=== PATIENT | male | born 1940 | race Caucasian/White ===

== ENCOUNTER 2018-12-21 23:29 | Emergency (ER) | payer MEDICARE, BC ==
[~2018-12-21] VITALS: Ht 193 cm; Wt 120.0 kg
[~2018-12-21 23:29] MED LIST: niCARDipine in NS 40mg/200ml (0.2mg/ml) IVPB IV ONE
[2018-12-21] MEDS ORDERED: niCARDipine-NS 40mg/200ml IVPB 200 ML IV SCH (23:45)
--- NOTE | 2018-12-21 23:45 | NUR ---
to bed 4 for level 1 stroke alert. pt is returning from CT. he is obtunded with labored breathing. Dr. Yepez notified and intubation prepared.
[2018-12-21 23:49] LABS: BASOPHILS # (AUTO) 0.1 X10'3 (0-0.2); BASOPHILS % (AUTO) 0.7 % (0-1); EOSINOPHILS # (AUTO) 0.2 X10'3 (0-0.9); EOSINOPHILS % (AUTO) 2.2 % (0-6); HEMATOCRIT 37.6 % (42.0-52.0); HEMOGLOBIN 12.8 g/dl (14.0-17.9); LYMPHOCYTES # (AUTO) 2.2 X10'3 (1.1-4.8); LYMPHOCYTES % (AUTO) 31.9 % (21-51); MEAN CORPUSCULAR HEMOGLOBIN 29.7 PG (27.0-31.0); MEAN CORPUSCULAR HGB CONC 34.1 g/dL (33.0-36.5); MEAN CORPUSCULAR VOLUME 87.3 FL (78-98); MEAN PLATELET VOLUME 7.8 FL (7.4-10.4); MONOCYTES # (AUTO) 0.5 X10'3 (0-0.9); MONOCYTES % (AUTO) 7.7 % (2-12); NEUTROPHILS % (AUTO) 57.5 % (42-75); PLATELET COUNT 201 X10'3 (140-440); RED BLOOD COUNT 4.31 X10'6 (4.70-6.10); RED CELL DISTRIBUTION WIDTH 15.5 % (11.5-14.5)
--- NOTE | 2018-12-21 23:50 | NUR ---
Patient's mental status is declining and ias concerning that he cannot maintqain his airway. Dr. Calderon at bedside and is preparing to intubate. Stroke nurse at bedside preparing cardene drip.
--- NOTE | 2018-12-21 23:58 | NUR ---
cardine up to 10mg/hr at Dr. Calderon order. BP 221/127
[2018-12-22 00:04] LABS: ALBUMIN 3.7 G/DL (3.4-5.0); ANION GAP 13 (8-16); BILIRUBIN,TOTAL 0.5 MG/DL (0.1-1.0); BLOOD UREA NITROGEN 20 MG/DL (7-18); BUN/CREATININE RATIO 15.7 (5.4-32.0); CALCIUM 8.6 MG/DL (8.5-10.1); CHLORIDE 108 MMOL/L (99-107); CREATININE 1.27 MG/DL (0.60-1.10); GLUCOSE 183 MG/DL (70-104); PHOSPHORUS 2.2 MG/DL (2.3-4.5); POTASSIUM 3.3 MMOL/L (3.5-5.1); SODIUM 142 MMOL/L (135-145); TOTAL CARBON DIOXIDE 21.5 MMOL/L (24-32); eGFR 55 ML/MIN
[2018-12-22 00:05] LABS: ALANINE AMINOTRANSFERASE 26 U/L (12-78); ALBUMIN/GLOBULIN RATIO 1.1 (1.1-1.5); ALKALINE PHOSPHATASE 86 IU/L (46-116); ASPARTATE AMINO TRANSFERASE 17 U/L (10-37); ETHANOL < 0.010 GM/DL (0.0-0.010)
--- NOTE | 2018-12-22 00:05 | NUR ---
Blood pressure remains well above target of 140 systolic. Cardene increased to 15mg/hr at Dr. Zhu's order.
[2018-12-22 00:13] LABS: PARTIAL THROMBOPLASTIN TIME 30 SECONDS (22-32)
[2018-12-22 00:15] LABS: ABG BASE EXCESS -2.7 mmol/L (-2.0-3.0); ABG HCO3 22.7 mmol/L (22.0-26.0); ABG OXYGEN SATURATION 98.9 % (95-98); ABG PCO2 (T) 40.4 mmHg (35.0-48.0); ABG PH (T) 7.364 (7.350-7.450); ABG PO2 (T) 192.8 mmHg (83-108); FCOHb 0.6 % (0.5-1.5); FMetHb 0.3 % (0.3-1.12); MINUTE VOLUME 8 L/min; PATIENT TEMPERATURE 36.3; PEEP 5 cm H2O; RESPIRATORY RATE 18 b/min; RESPIRATORY RATE (OBSERVED) 18 b/min; TIDAL VOLUME 450 mL
[2018-12-22] MEDS ORDERED: tranexamic acid 100mg/ml inj. IV ONE (00:15)
[2018-12-22] MEDS ORDERED: charcoal, activated 50 GM/240 ML bottle PO ONE (00:25)
--- NOTE | 2018-12-22 00:38 | NUR ---
NG tube placement verified via [facility] gastric sample testing.
[2018-12-22] MEDS ORDERED: normal saline 1000ML IV soln IVB ONE (00:40)
--- NOTE | 2018-12-22 00:40 | NUR ---
Dr. Calderon notified of downward trending blood pressure despite holding cardene. 500mL bolus of NS ordered verbally and given.
[2018-12-22] MEDS ORDERED: ATOR40TA72 PO (00:47)
[2018-12-22] MEDS ORDERED: RIVA20TA PO (00:47)
[2018-12-22] MEDS ORDERED: HUMAN PROTHROMBIN COMPLEX PCC IV ONE (00:55)
[2018-12-22 01:16] LABS: CLARITY,URINE CLEAR (Clear); COLOR,URINE YELLOW (Yellow); GLUCOSE, URINE 100 mg/dl (Neg); KETONES,URINE NEGATIVE (Neg); LEUKOCYTE ESTERASE ,URINE NEGATIVE (Neg); NITRITES, URINE NEGATIVE (Neg); OCCULT BLOOD,URINE TRACE-LYSED (Neg); PH,URINE 6.5 (4.8-8.0); PROTEIN,URINE NEGATIVE (Neg); UROBILINOGEN,URINE 0.2 E.U/dL (0.2-1.0)
[2018-12-22 01:19] LABS: UA COLLECTION TYPE OTHER
[2018-12-22 01:25] LABS: URINE AMPHETAMINE SCREEN NEGATIVE (Neg); URINE BARBITUATE SCREEN NEGATIVE (Neg); URINE BENZODIAZEPINES SCREEN NEGATIVE (Neg); URINE CANNABINOID SCREEN NEGATIVE (Neg); URINE COCAINE SCREEN NEGATIVE (Neg); URINE METHADONE SCREEN NEGATIVE (Neg); URINE OPIATE SCREEN NEGATIVE (Neg); URINE PHENCYCLIDINE SCREEN NEGATIVE (Neg)
[2018-12-22 01:43] VITALS: BP 96/71
[2018-12-22 01:44] LABS: BACTERIA,URINE FEW /HPF (Neg); SQUAMOUS EPITHELIAL CELL,UR FEW /LPF (FEW); WBC,URINE 0-4 /HPF (0-4)
[2018-12-22] MEDS ORDERED: levetiracetam inj 500 MG in normal saline 100ml IV soln 95 ML IV SCH (08:00)
== END 2018-12-22 01:11 | disposition short-term general hospital (02) ==
LOC: ER 23:29
DX: I61.9 Nontraumatic intracerebral hemorrhage, unspecified (principal); G91.9 Hydrocephalus, unspecified; I95.9 Hypotension, unspecified; R41.82 Altered mental status, unspecified; I48.91 Unspecified atrial fibrillation; E78.00 Pure hypercholesterolemia, unspecified; I10 Essential (primary) hypertension; Z79.899 Other long term (current) drug therapy; E78.5 Hyperlipidemia, unspecified
CPT/HCPCS: 31500; 36415; 36600; 70450; 71045; 80053; 80305; 80320; 81001; 82803; 82948; 83735; 84100; 84484; 85018; 85025; 85610; 85730; 93005; 96365; 96375; 99291; C9132; J1953; J2150; 94002